=== PATIENT | male | born 1965 | race Caucasian/White ===

== ENCOUNTER 2020-09-25 06:22 | Emergency (ER) | payer OTHER ==
[~2020-09-25] VITALS: Ht 160 cm; Wt 87.1 kg
[2020-09-25 06:27] VITALS: BP 152/95
[2020-09-25] MEDS ORDERED: KETOROLAC 30 MG/ML VIAL IM ONE (07:20)
[2020-09-25] MEDS ORDERED: HYDROcodone/APAP 5/325 MG 1 TAB TAB PO ONE (07:20)
[2020-09-25] MEDS ORDERED: ONDANSETRON 4 MG ODT PO ONE (07:20)
[2020-09-25] MEDS ORDERED: ONDA-24 PO (09:39)
[2020-09-25] MEDS ORDERED: IBUP-2213 PO (09:39)
[2020-09-25] MEDS ORDERED: ACET-8386 PO (09:39)
[2020-09-25 09:46] VITALS: BP 123/53
== END 2020-09-25 09:46 | disposition home or self-care (01) ==
LOC: MED 06:22
DX: M25.532 Pain in left wrist (principal); M13.80 Other specified arthritis, unspecified site; X58.XXXA Exposure to other specified factors, initial encounter; Y93.89 Activity, other specified; Y92.89 Other specified places as the place of occurrence of the external cause; Y99.8 Other external cause status
CPT/HCPCS: 29125; 73110; 73200; 96372; 99284; J1885; Q0162

== ENCOUNTER 2021-02-04 08:38 | Emergency (ER) | payer OTHER ==
[~2021-02-04] VITALS: Ht 160 cm; Wt 86.6 kg
[~2021-02-04 08:38] MED LIST: ACET-8386 PO; IBUP-2213 PO; ONDA-24 PO
[2021-02-04 08:45] VITALS: BP_SYST 173; BP_SYST 199; BP_DIAS 95
--- NOTE | 2021-02-04 08:49 | NUR ---
PT SENT TO LOBBY
--- NOTE | 2021-02-04 13:51 | NUR ---
PATIENT LEFT WITHOUT BEING SEEN BY DR. HERZOG. NO FURTHER CARE PROVIDED FOR PATIENT.
== END 2021-02-04 13:51 | disposition left against medical advice (07) ==
LOC: MED 08:38
DX: Z53.21 Procedure and treatment not carried out due to patient leaving prior to being seen by health care provider (principal); M54.6 Pain in thoracic spine; Z79.1 Long term (current) use of non-steroidal anti-inflammatories (NSAID); Z79.899 Other long term (current) drug therapy; Z79.891 Long term (current) use of opiate analgesic; Z91.013 Allergy to seafood; W18.39XA Other fall on same level, initial encounter; Y92.89 Other specified places as the place of occurrence of the external cause; Y93.89 Activity, other specified; Y99.8 Other external cause status
CPT/HCPCS: 71250; 72128; 99281

== ENCOUNTER 2021-02-05 22:49 | Emergency (ER) | payer OTHER ==
[~2021-02-05] VITALS: Ht 162.6 cm; Wt 85.7 kg
--- NOTE | 2021-02-05 22:49 | NUR ---
[facility]
[2021-02-05 22:50] VITALS: BP 160/112
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
[2021-02-05] MEDS ORDERED: MORPHINE SULFATE 4 MG/ML SYR IVP ONE (23:20)
[2021-02-05] MEDS ORDERED: NACL 0.9% 1,000 ML IV ONE (23:20)
[2021-02-05] MEDS ORDERED: ONDANSETRON 4 MG/2 ML VIAL IVP ONE (23:20)
[2021-02-05 23:42] LABS: BASOPHILS # (AUTO) 0.1 K/uL (0.00-0.22); BASOPHILS % (AUTO) 2.1 % (0.0-2.0); EOSINOPHILS % (AUTO) 0.7 % (0.0-4.0); HEMOGLOBIN 15.2 g/dL (12.0-18.0); MEAN CORPUSCULAR HEMOGLOBIN 33 pg (27-31); MEAN CORPUSCULAR HGB CONC 35 g/dL (33-37); MEAN CORPUSCULAR VOLUME 94.1 fL (80-94); MONOCYTES # (AUTO) 0.4 K/uL (0.8-1.0); MONOCYTES % (AUTO) 10.2 % (1.7-9.3); PLATELET COUNT (AUTO) 250 K/uL (140-450); RED BLOOD CELL COUNT(AUTO) 4.67 MIL/uL (4.20-6.10); RED CELL DISTRIBUTION WIDTH 13.4 % (11.6-13.7); WHITE BLOOD COUNT (AUTO) 3.4 K/uL (4.8-10.8)
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
[2021-02-06 00:04] LABS: ALBUMIN 3.5 g/dL (3.4-5.0); ANION GAP 14.3 (8-16); CARBON DIOXIDE 24.5 mmol/L (21-32); CREATININE 0.8 mg/dL (0.6-1.3); POTASSIUM 3.8 mmol/L (3.5-5.1); TOTAL BILIRUBIN 0.2 mg/dL (0.0-1.0)
--- NOTE | 2021-02-06 00:48 | NUR ---
PT APPEARS TO BE RESTING W EYES CLOSED SUPINE HOB SLIGHTLY ELEVATED, BLANKET ON. BED LOCKED IN LOWEST POSITION W X2 SIDERAILS. VSS. BREATHING EVEN AND UNLABORED. NAD NOTED, WILL CONTINUE TO MONITOR.
--- NOTE | 2021-02-06 01:49 | NUR ---
PT TAKEN TO CT VIA [facility].
--- NOTE | 2021-02-06 02:29 | NUR ---
PT BROUGHT BACK FROM CT VIA [facility].
--- NOTE | 2021-02-06 02:36 | NUR ---
PT APPEARS TO BE RESTING W EYES CLOSED IN R LATERAL POSITION. BREATHING EVEN AND UNLABORED. VSS ON MONITOR. NAD NOTED, WILL CONTINUE TO MONITOR.
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
[2021-02-06] MEDS ORDERED: LID5T TP (04:10)
[2021-02-06] MEDS ORDERED: ACET-8386 PO (04:10)
[2021-02-06] MEDS ORDERED: ACET-2619 PO (04:10)
[2021-02-06] MEDS ORDERED: IBUP-2213 PO (04:10)
[2021-02-06] MEDS ORDERED: AMOX-1000 PO (04:11)
[2021-02-06] MEDS ORDERED: HYDROcodone/APAP 5/325 MG 1 TAB TAB PO ONE (04:15)
[2021-02-06 04:50] VITALS: BP 142/97
--- NOTE | 2021-02-06 04:50 | NUR ---
Patient discharged with v/s stable. Written and verbal after care instructions given and explained. Patient alert, oriented and verbalized understanding of instructions. Ambulatory with steady gait. All questions addressed prior to discharge. ID band removed. Patient advised to follow up with PMD. Rx of norco, ibuprofen, augmentin, lidocaine, tylenol given. Patient educated on indication of medication including possible reaction and side effects. Opportunity to ask questions provided and answered.
== END 2021-02-06 04:50 | disposition home or self-care (01) ==
LOC: MED 22:49
DX: S02.2XXA Fracture of nasal bones, initial encounter for closed fracture (principal); S22.059A Unspecified fracture of T5-T6 vertebra, initial encounter for closed fracture; S43.402A Unspecified sprain of left shoulder joint, initial encounter; W11.XXXA Fall on and from ladder, initial encounter; Y93.89 Activity, other specified; Y92.89 Other specified places as the place of occurrence of the external cause; Y99.8 Other external cause status
CPT/HCPCS: 36415; 70450; 71250; 72125; 72128; 72131; 73030; 74176; 80053; 85025; 85610; 96361; 96374; 96375; 99285; J2270; J2405; J7030; Q0092

== ENCOUNTER 2021-06-01 11:27 | Emergency (ER) | payer OTHER ==
[~2021-06-01] VITALS: Ht 167.6 cm; Wt 72.6 kg
[~2021-06-01 11:27] MED LIST changes: +ACET-2619 PO; +AMOX-1000 PO; +LID5T TP; +ONDA-188 PO; -ONDA-24 PO
[2021-06-01 11:31] VITALS: BP 149/127
[2021-06-01] MEDS ORDERED: KETOROLAC 15 MG/ML VIAL IVP ONE (11:35)
[2021-06-01] MEDS ORDERED: NACL 0.9% 1,000 ML IV ONE (11:35)
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
--- NOTE | 2021-06-01 12:14 | NUR ---
BLOOD WORK COLLECTED AND HANDED TO PAMELA TIRADO
--- NOTE | 2021-06-01 12:14 | NUR ---
[place] [facility] AT BEDSIDE
[2021-06-01 12:50] LABS: ALBUMIN 4.1 g/dL (3.4-5.0); ANION GAP 19.9 (8-16); CARBON DIOXIDE 21.2 mmol/L (21-32); CREATININE 0.7 mg/dL (0.6-1.3); POTASSIUM 4.1 mmol/L (3.5-5.1); TOTAL BILIRUBIN 0.5 mg/dL (0.0-1.0)
[2021-06-01 13:12] LABS: BASOPHILS # (AUTO) 0.1 K/uL (0.00-0.22); EOSINOPHILS % (AUTO) 0.1 % (0.0-4.0); HEMATOCRIT 46.4 % (36-52); HEMOGLOBIN 16.3 g/dL (12.0-18.0); LYMPHOCYTES # (AUTO) 1.6 K/uL (2.0-11.5); LYMPHOCYTES % (AUTO) 46.1 % (20.5-51.1); MEAN CORPUSCULAR HEMOGLOBIN 33 pg (27-31); MEAN CORPUSCULAR HGB CONC 35 g/dL (33-37); MONOCYTES # (AUTO) 0.3 K/uL (0.8-1.0); MONOCYTES % (AUTO) 8.2 % (1.7-9.3); NEUTROPHILS # (AUTO) 1.5 K/uL (1.8-7.7); NEUTROPHILS % (AUTO) 43.6 % (42.2-75.2); PLATELET COUNT (AUTO) 251 K/uL (140-450); RED BLOOD CELL COUNT(AUTO) 4.94 MIL/uL (4.20-6.10); WHITE BLOOD COUNT (AUTO) 3.5 K/uL (4.8-10.8)
[2021-06-01] MEDS ORDERED: IBUP-2213 PO (13:55)
[2021-06-01] MEDS ORDERED: HYDR-5191 PO (13:55)
--- NOTE | 2021-06-01 14:07 | NUR ---
PATIENT'S STATES UNABLE TO PROVIDE TRANSPORTATION GOING HOME.
--- NOTE | 2021-06-01 14:26 | NUR ---
Patient discharged with v/s stable. Written and verbal after care instructions given and explained. Patient alert, oriented and verbalized understanding of instructions. Ambulatory with steady gait. All questions addressed prior to discharge. ID band removed. Patient advised to follow up with PMD. Rx of tylenol and norco given. Patient educated on indication of medication including possible reaction and side effects. Opportunity to ask questions provided and answered.
[2021-06-01 14:27] VITALS: BP 149/127
[2021-06-01 15:43] LABS: APPEARANCE,URINE CLEAR (CLEAR); BILIRUBIN,URINE NEGATIVE (NEGATIVE); BLOOD, URINE NEGATIVE (NEGATIVE); COLOR,URINE YELLOW (YELLOW); LEUKOCYTE ESTERASE ,URINE NEGATIVE (NEGATIVE); NITRITE, URINE NEGATIVE (NEGATIVE); PH,URINE 5.5 (5.0-9.0); UGLUCOSE NEGATIVE (NEGATIVE)
[2021-06-01 15:59] LABS: BARBITURATE, URINE NEGATIVE ng/ml (NEG <=200); BENZODIAZEPINE, URINE NEGATIVE ng/mL (NEG <=200); CANNABINOID, URINE POSITIVE ng/mL (NEG <=50); COCAINE, URINE NEGATIVE ng/mL (NEG <=300)
[2021-06-01 16:00] LABS: OPIATE, URINE NEGATIVE ng/mL (NEG <=2000); PHENCYCLIDINE SCREEN,URINE NEGATIVE ng/mL (NEG <=25)
== END 2021-06-01 14:26 | disposition home or self-care (01) ==
LOC: MED 11:27
DX: M54.9 Dorsalgia, unspecified (principal); I10 Essential (primary) hypertension; Z79.899 Other long term (current) drug therapy; Y04.2XXA Assault by strike against or bumped into by another person, initial encounter; Y93.89 Activity, other specified; Y92.89 Other specified places as the place of occurrence of the external cause; Y99.8 Other external cause status
CPT/HCPCS: 36415; 71045; 74176; 80053; 80305; 81003; 85025; 96361; 96374; 99285; G0482; J1885; J7030; Q0092

== ENCOUNTER 2022-09-26 20:48 | Inpatient (IN) | payer MEDICAID, OTHER ==
[~2022-09-26] VITALS: Ht 165.1 cm; Wt 81.6 kg
--- NOTE | 2022-09-26 20:48 | NUR ---
BIBA TO BED #9
[2022-09-26 20:52] VITALS: BP 154/95
--- NOTE | 2022-09-26 20:53 | NUR ---
Patient being evaluated by physician at bedside.
[2022-09-26] MEDS ORDERED: diazePAM 5 MG TAB PO ONE (20:55)
[2022-09-26] MEDS ORDERED: NACL 0.9% 1,000 ML IV ONE ×2 (20:55→21:45)
[2022-09-26 21:14] LABS: BASOPHILS # (AUTO) 0.1 K/uL (0.00-0.22); BASOPHILS % (AUTO) 1.3 % (0.0-2.0); EOSINOPHILS % (AUTO) 0.1 % (0.0-4.0); HEMATOCRIT 48.3 % (36-52); HEMOGLOBIN 16.5 g/dL (12.0-18.0); LYMPHOCYTES # (AUTO) 1.9 K/uL (2.0-11.5); LYMPHOCYTES % (AUTO) 41.2 % (20.5-51.1); MEAN CORPUSCULAR HEMOGLOBIN 32 pg (27-31); MEAN CORPUSCULAR HGB CONC 34 g/dL (33-37); MEAN CORPUSCULAR VOLUME 93.9 fL (80-94); MONOCYTES # (AUTO) 0.4 K/uL (0.8-1.0); MONOCYTES % (AUTO) 8.5 % (1.7-9.3); NEUTROPHILS # (AUTO) 2.2 K/uL (1.8-7.7); NEUTROPHILS % (AUTO) 48.9 % (42.2-75.2); PLATELET COUNT (AUTO) 272 K/uL (140-450); RED BLOOD CELL COUNT(AUTO) 5.14 MIL/uL (4.20-6.10); RED CELL DISTRIBUTION WIDTH 14.6 % (11.6-13.7); WHITE BLOOD COUNT (AUTO) 4.5 K/uL (4.8-10.8)
[2022-09-26 21:30] LABS: CARBON DIOXIDE 23.9 mmol/L (21-32); CREATININE 0.8 mg/dL (0.6-1.3); POTASSIUM 4.9 mmol/L (3.5-5.1)
--- NOTE | 2022-09-26 21:39 | NUR ---
Dr. Avila examining patient.
--- NOTE | 2022-09-26 23:55 | NUR ---
Spoke with , Adriane Yi, via phone in regards to patient discharge who stated she would be unable to pick patient up at this time
--- NOTE | 2022-09-27 | NUR ---
Attempted to ambulate patient, unable to do so at this time, noted with unsteady gait and c/o dizziness when attempting to ambulate.
[2022-09-27] MEDS ORDERED: LORazepam 2 MG/ML VIAL IVP ONE (00:25)
[2022-09-27] MEDS ORDERED: ONDANSETRON 4 MG/2 ML VIAL IVP ONE (00:25)
--- NOTE | 2022-09-27 01:29 | NUR ---
Report given to Lindsey MONGE for transfer of care.
[2022-09-27 01:40] VITALS: BP 122/78
--- NOTE | 2022-09-27 01:40 | NUR ---
56YR OLD MALE ADDMITTED TO [id number] IS SNORING BUT IS AROUSABLE ORIENT TO ROOM ON ROOMAIR BED IN LOW POSITION SKIN CHECKED REPOSITIONED AND MADE COMFORTABLE IN BED
[2022-09-27] MEDS: NACL 0.9% 1,000 ML IV SCH ×2 (01:55→08:21)
[2022-09-27 04:00] VITALS: BP 131/83
[2022-09-27] MEDS: LORazepam 2 MG/ML VIAL IVP PRN ×7 (05:59→21:11)
[2022-09-27 08:00] VITALS: BP 157/98
--- NOTE | 2022-09-27 08:42 | NUR ---
PATIENT HAS BEEN SCREENED AND CATEGORIZED LOW NUTRITION RISK. PATIENT WILL BE SEEN WITHIN 7 DAYS OF ADMISSION. 10/04/[address]
[2022-09-27] MEDS ORDERED: guaiFENesin DM 200/20 MG-10 ML 10 ML UDC PO PRN (08:50)
[2022-09-27] MEDS ORDERED: POTASSIUM CHLORIDE 10 MEQ TABER PO PRN (08:50)
[2022-09-27] MEDS ORDERED: DOCUSATE SODIUM 100 MG GELCAP PO PRN (08:50)
[2022-09-27] MEDS: PANTOPRAZOLE 40 MG TABEC PO SCH (09:54)
[2022-09-27 09:58] LABS: PROTHROMBIN TIME 10.8 secs (10.8-13.4)
[2022-09-27 10:08] LABS: AMYLASE 88 U/L (25-115); CHOL/HDL RATIO 1.9 (1-4.5); FREE T4 (FREE THYROXINE) 0.58 ng/dL (0.76-1.46); HDL CHOLESTEROL 100 mg/dL (40-60); LDL (CALC) 75 mg/dL (60-100); LIPASE 68 U/L (73-393); MAGNESIUM 1.5 mg/dL (1.8-2.4); PHOSPHORUS 3.2 mg/dL (2.5-4.9); THYROID STIMULATING HORMONE 2.31 uIU/mL (0.34-3.74); TRIGLYCERIDES 76 mg/dL (30-150)
[2022-09-27] MEDS: LORazepam 1 MG TAB PO SCH ×2 (13:02→20:03)
[2022-09-27] MEDS: ONDANSETRON 4 MG/2 ML VIAL IM/IVP PRN (13:55)
[2022-09-27] MEDS: HYDROcodone/APAP 7.5/325 MG 1 TAB PO PRN ×2 (13:55→23:47)
[2022-09-27] MEDS ORDERED: THIAMINE 200 MG/2 ML VIAL IM SCH (14:00)
[2022-09-27] MEDS ORDERED: MAG SULF 2000 MG/WATER PREMIX 50 ML IV SCH (14:00)
[2022-09-27] MEDS ORDERED: MULTIVITAMIN-12 10 ML, FOLIC ACID 1 MG in DEXT 5% / LACT RING 1,000 ML IV SCH (14:30)
[2022-09-27] MEDS: THIAMINE 100 MG TAB PO SCH (15:12)
[2022-09-27 16:00] VITALS: BP 146/98
[2022-09-27 17:25] LABS: APPEARANCE,URINE CLEAR (CLEAR); BILIRUBIN,URINE NEGATIVE (NEGATIVE); BLOOD, URINE NEGATIVE (NEGATIVE); COLOR,URINE YELLOW (YELLOW); LEUKOCYTE ESTERASE ,URINE NEGATIVE (NEGATIVE); NITRITE, URINE NEGATIVE (NEGATIVE); UGLUCOSE NEGATIVE (NEGATIVE)
[2022-09-27 17:36] LABS: BARBITURATE, URINE NEGATIVE ng/ml (NEG <=200); BENZODIAZEPINE, URINE POSITIVE ng/mL (NEG <=200); CANNABINOID, URINE POSITIVE ng/mL (NEG <=50); COCAINE, URINE NEGATIVE ng/mL (NEG <=300); OPIATE, URINE POSITIVE ng/mL (NEG <=2000); PHENCYCLIDINE SCREEN,URINE NEGATIVE ng/mL (NEG <=25)
--- NOTE | 2022-09-27 19:39 | NUR ---
PT HAD CRITICAL LAB VALUE REPORT, LACTIC ACID: 2.2. INFORMED ATTENDING MD, ATTENDING MD STATES TO CONTINUE MONITORING. PT WAS REQUESTED PRN ATIVAN THROUGHOUT DAY. ATIVAN PROVIDED ORDERED. 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
--- NOTE | 2022-09-27 19:41 | NUR ---
ENDORSED TO NIGHTSHIFT NURSE FOR CONTINUITY OF CARE. PT RESTING IN BED, AWAKE, STABLE. CALL LIGHT WITHIN REACH.
--- NOTE | 2022-09-27 19:42 | NUR ---
RECEIVED REPORT FROM DAY SHIFT RN FOR CONTINUITY OF CARE. PT IS RESTING IN BED. AAOX4. PT HAS IV ON LEFT FOREARM 20 GAUGE. BANANA BAG RUNNING 100 CC/HR. PT ASKING FOR ATIVAN. MEDICATION STILL NOT DUE BUT WILL GIVE ONCE IT IS TIME. POC DISCUSSED. WILL CONTINUE TO MONITOR THE PT.
[2022-09-27 20:00] VITALS: BP 151/87
[2022-09-27] MEDS: ZOLPIDEM 5 MG TAB PO PRN (20:07)
--- NOTE | 2022-09-27 23:50 | NUR ---
PT COMPLAINED OF GENERALIZED PAIN. NORCO WAS GIVEN PER MD ORDER. NO OTHER COMPLAINS.
[2022-09-28] MEDS: LORazepam 2 MG/ML VIAL IVP PRN ×11 (01:18→22:50)
[2022-09-28] MEDS: HYDROcodone/APAP 7.5/325 MG 1 TAB PO PRN ×3 (03:40→23:39)
[2022-09-28 04:00] VITALS: BP 137/81
[2022-09-28] MEDS: LORazepam 1 MG TAB PO SCH ×3 (04:16→20:25)
--- NOTE | 2022-09-28 04:59 | NUR ---
PT COMPLAINED OF 5/10 PAIN ON LEFT FOOT. NORCO WAS GIVEN. NO OTHER COMPLAINS. Addendum: 09/28/22 at 0603 by Thong Thao RN WRONG PT. PT COMPLAINED OF GENERALIZED PAIN 10/10. PT WANTED NORCO AND WAS GIVEN. NO OTHER COMPLAINS.
[2022-09-28 05:36] LABS: BASOPHILS # (AUTO) 0.1 K/uL (0.00-0.22); BASOPHILS % (AUTO) 1.1 % (0.0-2.0); EOSINOPHILS # (AUTO) 0.1 K/uL (0-0.4); EOSINOPHILS % (AUTO) 1.6 % (0.0-4.0); HEMATOCRIT 41.9 % (36-52); HEMOGLOBIN 14.5 g/dL (12.0-18.0); LYMPHOCYTES # (AUTO) 1.2 K/uL (2.0-11.5); LYMPHOCYTES % (AUTO) 23.3 % (20.5-51.1); MEAN CORPUSCULAR HEMOGLOBIN 32 pg (27-31); MEAN CORPUSCULAR HGB CONC 35 g/dL (33-37); MEAN CORPUSCULAR VOLUME 93.4 fL (80-94); MONOCYTES # (AUTO) 0.9 K/uL (0.8-1.0); MONOCYTES % (AUTO) 17.2 % (1.7-9.3); NEUTROPHILS % (AUTO) 56.8 % (42.2-75.2); PLATELET COUNT (AUTO) 210 K/uL (140-450); RED BLOOD CELL COUNT(AUTO) 4.49 MIL/uL (4.20-6.10); RED CELL DISTRIBUTION WIDTH 14.4 % (11.6-13.7); WHITE BLOOD COUNT (AUTO) 5.3 K/uL (4.8-10.8)
[2022-09-28 06:08] LABS: CARBON DIOXIDE 25.8 mmol/L (21-32); CREATININE 0.7 mg/dL (0.6-1.3); POTASSIUM 3.8 mmol/L (3.5-5.1)
--- NOTE | 2022-09-28 07:11 | NUR ---
ENDORSED PT TO DAY SHIFT RN FOR CONTINUITY OF CARE. PT IS STABLE.
--- NOTE | 2022-09-28 07:48 | NUR ---
Patient says he is feeling scared and hallucinating. Left arm and body are shaking upon examination. Patient says he wants to call his family but he does not have his phone and does not know where it is.
[2022-09-28] MEDS: NACL 0.9% 1,000 ML IV SCH ×4 (07:51→22:15)
[2022-09-28 08:00] VITALS: BP 138/71
[2022-09-28] MEDS: THIAMINE 100 MG TAB PO SCH (08:08)
[2022-09-28] MEDS: PANTOPRAZOLE 40 MG TABEC PO SCH (08:09)
[2022-09-28] MEDS: ACETAMINOPHEN 325 MG TAB PO PRN ×2 (08:09→13:08)
[2022-09-28] MEDS ORDERED: MULTIVITAMIN 1 TAB PO SCH (09:00)
[2022-09-28] MEDS ORDERED: FOLIC ACID 1 MG TAB PO SCH (09:00)
--- NOTE | 2022-09-28 12:36 | NUR ---
Patient requesting warm blanket given at this time.
--- NOTE | 2022-09-28 12:37 | NUR ---
Patient request for change of clothes when he leaves tomorrow he says.
[2022-09-28] MEDS: chlordiazePOXIDE 25 MG CAP PO SCH ×2 (13:08→17:27)
[2022-09-28] MEDS: ONDANSETRON 4 MG/2 ML VIAL IM/IVP PRN (13:09)
--- NOTE | 2022-09-28 13:17 | NUR ---
Patient complaint of pain, anxiety, and says he needs to get back in to work on Saturday. Wants to have medication for nausea as well and says he needs something to eat.
--- NOTE | 2022-09-28 15:13 | NUR ---
Patient is still feeling bad and wants something for shaking and to help him sleep. His goal is to taper off the medication or at least further time intervals between doses.
[2022-09-28 16:00] VITALS: BP 148/98
[2022-09-28 17:13] LABS: T4 (THYROXINE) 4.2 ug/dL (4.5 - 12.0)
--- NOTE | 2022-09-28 18:18 | NUR ---
PATIENT IS AWARE THAT DOCTOR MOHINI IS NOT ABLE TO DISCHARGE AT THIS TIME, HOWEVER, PATIENT EDUCATION HE MAY GO AGAINST MEDICAL ADVICE. DOCTOR MOHINI MADE AWARE AND CONCURS WITH EDUCATION.
--- NOTE | 2022-09-28 19:14 | NUR ---
Handoff with night team registered nurseThong.
--- NOTE | 2022-09-28 19:30 | NUR ---
RECEIVED REPORT FROM DAY SHIFT RN FOR CONTINUITY OF CARE. PT IS RESTING IN BED. AAOX4. RESTING IN BED. PT HAS IV ON LEFT FOREARM 20 GAUGE. RUNNING NS 135 CC/HR. POC DISCUSSED. WILL CONTINUE TO MONITOR THE PT.
[2022-09-28 20:00] VITALS: BP 153/95
[2022-09-28] MEDS: ZOLPIDEM 5 MG TAB PO PRN (20:25)
--- NOTE | 2022-09-28 22:50 | NUR ---
PT STATES HE IS FEELING BAD. PT WANTS SOME MEDICINE. ATIVAN WAS GIVEN.
--- NOTE | 2022-09-28 23:49 | NUR ---
PT CALLED ON THE CALL LIGHT ASKING IF HE CAN SMOKE. PT WAS EDUCATED AND HE CANNOT SMOKE HERE IN THE HOSPITAL.
[2022-09-29] MEDS: LORazepam 2 MG/ML VIAL IVP PRN ×3 (00:44→03:12)
--- NOTE | 2022-09-29 04:03 | NUR ---
PT CALLED ASKING THAT HE IS LEAVING AMA. TRIED EDUCATING PT ABOUT LEAVING AMA AND SHOULD WAIT TO SEE THE DOCTOR. PT SAYS HE HAS TO LEAVE AT 4AM. HE HAS SOME BUSINESS HE HAS TO HANDLE. PT HAS NO RIDE. HE SAYS HIS DAUGHTER LIVES NEARBY AND HE WILL WALK IT. PT DENIED ANY MEASURES OF STAYING. MESSAGE [employer] COORDINATOR DOCTOR OMAR ABOUT THE PT LEAVING AMA.
== END 2022-09-29 04:03 | disposition left against medical advice (07) | DRG 52 ==
LOC: MED 20:48 → MMU 09-27 01:06 → MTU 09-27 01:23
PROVIDERS: ADMIT Family Medicine; ATTEND Family Medicine
DX: G92.9 Unspecified toxic encephalopathy (principal); E87.20 Acidosis, unspecified; E83.42 Hypomagnesemia; F10.129 Alcohol abuse with intoxication, unspecified; I10 Essential (primary) hypertension; Y90.8 Blood alcohol level of 240 mg/100 ml or more; Z91.013 Allergy to seafood
CPT/HCPCS: 36415; 71045; 80048; 80305; 81003; 82150; 83036; 83605; 83690; 83735; 83880; 84100; 84436; 84439; 84443; 84479; 84484; 85025; 85610; 85730; 87081; 96361; 96374; 96375; 99285; A9153; G0482; J2060; J2405; J3411; J3475; J3490

== ENCOUNTER 2022-10-07 18:50 | Emergency (ER) | payer MEDICAID ==
[~2022-10-07] VITALS: Ht 160 cm; Wt 86.2 kg
[2022-10-07 18:53] VITALS: BP 138/92; PULSE 87; RESP 16; TEMP 98; O2SAT 85
--- NOTE | 2022-10-07 19:20 | NUR ---
PT TO CHAIR B
--- NOTE | 2022-10-07 19:25 | NUR ---
EKG performed Physician given copy of EKG for review.
--- NOTE | 2022-10-07 19:28 | NUR ---
LABS BEING DRAWN BY PHLEB
--- NOTE | 2022-10-07 19:38 | NUR ---
Patient being evaluated by physician
[2022-10-07 19:40] LABS: BASOPHILS % (AUTO) 0.9 % (0.0-2.0); EOSINOPHILS # (AUTO) 0.2 K/uL (0-0.4); EOSINOPHILS % (AUTO) 2.8 % (0.0-4.0); HEMATOCRIT 39.5 % (36-52); HEMOGLOBIN 13.4 g/dL (12.0-18.0); LYMPHOCYTES # (AUTO) 1.2 K/uL (2.0-11.5); LYMPHOCYTES % (AUTO) 20.9 % (20.5-51.1); MEAN CORPUSCULAR HEMOGLOBIN 32 pg (27-31); MEAN CORPUSCULAR HGB CONC 34 g/dL (33-37); MEAN CORPUSCULAR VOLUME 94.8 fL (80-94); MONOCYTES % (AUTO) 16.4 % (1.7-9.3); NEUTROPHILS # (AUTO) 3.4 K/uL (1.8-7.7); PLATELET COUNT (AUTO) 282 K/uL (140-450); RED BLOOD CELL COUNT(AUTO) 4.17 MIL/uL (4.20-6.10); RED CELL DISTRIBUTION WIDTH 14.5 % (11.6-13.7); WHITE BLOOD COUNT (AUTO) 5.8 K/uL (4.8-10.8)
[2022-10-07] MEDS ORDERED: LORazepam 1 MG TAB PO ONE (19:45)
[2022-10-07 20:05] LABS: ALBUMIN 3.7 g/dL (3.4-5.0); ANION GAP 12.6 (8-16); CARBON DIOXIDE 26.6 mmol/L (21-32); CREATININE 0.9 mg/dL (0.6-1.3); POTASSIUM 4.2 mmol/L (3.5-5.1); TOTAL BILIRUBIN 0.2 mg/dL (0.0-1.0)
[2022-10-07] MEDS ORDERED: ATA25 PO (20:47)
[2022-10-07] MEDS ORDERED: ONDA-188 SL (20:47)
[2022-10-07 21:03] VITALS: BP 138/92; PULSE 87; RESP 16; TEMP 98; O2SAT 85
--- NOTE | 2022-10-07 21:03 | NUR ---
Patient discharged with v/s stable. Written and verbal after care instructions given and explained. Patient alert, oriented and verbalized understanding of instructions. Ambulatory with steady gait. All questions addressed prior to discharge. ID band removed. Patient advised to follow up with PMD. Rx of ATARAX AND ZOFRAN given. Patient educated on indication of medication including possible reaction and side effects. Opportunity to ask questions provided and answered.
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
[2022-10-07 21:29] LABS: BARBITURATE, URINE NEGATIVE ng/ml (NEG <=200); BENZODIAZEPINE, URINE POSITIVE ng/mL (NEG <=200); CANNABINOID, URINE POSITIVE ng/mL (NEG <=50); COCAINE, URINE NEGATIVE ng/mL (NEG <=300); OPIATE, URINE NEGATIVE ng/mL (NEG <=2000); PHENCYCLIDINE SCREEN,URINE NEGATIVE ng/mL (NEG <=25)
== END 2022-10-07 21:03 | disposition home or self-care (01) ==
LOC: MED 18:50
DX: F10.20 Alcohol dependence, uncomplicated (principal); F41.9 Anxiety disorder, unspecified; R11.2 Nausea with vomiting, unspecified; I10 Essential (primary) hypertension; Z79.899 Other long term (current) drug therapy
CPT/HCPCS: 36415; 80053; 80305; 83690; 85025; 93005; 99284

== ENCOUNTER 2023-01-01 15:49 | Emergency (ER) | payer MEDICAID, OTHER ==
[~2023-01-01] VITALS: Ht 172.7 cm; Wt 85.7 kg
[~2023-01-01 15:49] MED LIST changes: -ACET-2619 PO; -ACET-8386 PO; -AMOX-1000 PO; +ATA25 PO; -IBUP-2213 PO; -LID5T TP; -ONDA-188 PO; +ONDA-188 SL
[2023-01-01 15:55] VITALS: BP 126/57; PULSE 133; RESP 17; TEMP 97.6; O2SAT 94
[2023-01-01] MEDS ORDERED: FAMOTIDINE 20 MG TAB PO ONE (16:55)
[2023-01-01] MEDS ORDERED: diphenhydrAMINE 50 MG/ML VIAL IVP ONE (16:55)
[2023-01-01] MEDS ORDERED: DEXAMETHASONE 10 MG/ML VIAL IVP ONE (16:55)
[2023-01-01] MEDS ORDERED: diphenhydrAMINE 50 MG CAP PO ONE (17:15)
[2023-01-01] MEDS ORDERED: DEXAMETHASONE 10 MG/ML VIAL IM ONE (17:15)
[2023-01-01] MEDS ORDERED: PRED20TA5 PO (19:22)
[2023-01-01] MEDS ORDERED: DIPH25TA53 PO (19:22)
[2023-01-01] MEDS ORDERED: FAMO-90 PO (19:22)
[2023-01-01] MEDS ORDERED: IBUP-2213 PO (19:22)
== END 2023-01-01 19:53 | disposition home or self-care (01) ==
LOC: MED 15:49
DX: R21 Rash and other nonspecific skin eruption (principal); I10 Essential (primary) hypertension; Z79.899 Other long term (current) drug therapy
CPT/HCPCS: 96372; 99283; J1100; Q0163

== ENCOUNTER 2023-02-08 08:08 | Observation (INO) | payer OTHER ==
[~2023-02-08] VITALS: Ht 167.6 cm; Wt 90.3 kg
[~2023-02-08 08:08] MED LIST changes: +DIPH25TA53 PO; +FAMO-90 PO; +IBUP-2213 PO; +PRED20TA5 PO
[2023-02-08] MEDS ORDERED: FOLIC ACID 5 MG, MULTIVITAMIN-12 10 ML in NACL 0.9% 1,000 ML IV ONE (08:15)
[2023-02-08] MEDS ORDERED: MAG SULF 2000 MG/WATER PREMIX 50 ML IV ONE ×2 (08:15→08:45)
[2023-02-08] MEDS ORDERED: THIAMINE 200 MG/2 ML VIAL IM ONE ×2 (08:15→08:45)
[2023-02-08] MEDS ORDERED: FOLIC ACID 5 MG/ML SYR ONE (08:23)
[2023-02-08 08:30] VITALS: BP 165/106; PULSE 108; RESP 20; TEMP 98; O2SAT 98
[2023-02-08 08:39] LABS: BASOPHILS # (AUTO) 0.1 K/uL (0.00-0.22); BASOPHILS % (AUTO) 2.2 % (0.0-2.0); EOSINOPHILS % (AUTO) 0.1 % (0.0-4.0); HEMATOCRIT 46.1 % (36-52); HEMOGLOBIN 15.8 g/dL (12.0-18.0); LYMPHOCYTES # (AUTO) 1.9 K/uL (2.0-11.5); LYMPHOCYTES % (AUTO) 39.3 % (20.5-51.1); MEAN CORPUSCULAR HEMOGLOBIN 31 pg (27-31); MEAN CORPUSCULAR HGB CONC 34 g/dL (33-37); MEAN CORPUSCULAR VOLUME 90.9 fL (80-94); MONOCYTES # (AUTO) 0.5 K/uL (0.8-1.0); MONOCYTES % (AUTO) 10.8 % (1.7-9.3); NEUTROPHILS # (AUTO) 2.3 K/uL (1.8-7.7); NEUTROPHILS % (AUTO) 47.6 % (42.2-75.2); PLATELET COUNT (AUTO) 270 K/uL (140-450); RED BLOOD CELL COUNT(AUTO) 5.07 MIL/uL (4.20-6.10); RED CELL DISTRIBUTION WIDTH 14.1 % (11.6-13.7); WHITE BLOOD COUNT (AUTO) 4.8 K/uL (4.8-10.8)
[2023-02-08] MEDS ORDERED: FOLIC ACID 1 MG TAB PO ONE (08:45)
[2023-02-08] MEDS ORDERED: NACL 0.9% 1,000 ML IV ONE ×3 (08:45→15:25)
[2023-02-08] MEDS ORDERED: LORazepam 2 MG/ML VIAL IVP ONE ×2 (08:45→13:10)
[2023-02-08 09:04] VITALS: O2SAT 96
[2023-02-08 09:08] LABS: ALANINE AMINOTRANSFERASE 67 U/L (12-78); ALBUMIN 4.2 g/dL (3.4-5.0); ALCOHOL, BLOOD 245 mg/dL (<10); ALKALINE PHOSPHATASE 80 U/L (50-136); ANION GAP 18.5 (8-16); ASPARTATE AMINOTRANSFERASE 103 U/L (15-37); CALCIUM 8.1 mg/dL (8.5-10.1); CARBON DIOXIDE 23.5 mmol/L (21-32); CHLORIDE 99 mmol/L (98-107); CREATININE 0.9 mg/dL (0.6-1.3); GFR ARICAN-AMERICAN 112 mL/min (>90); GFR NON ARICAN-AMERICAN 93 mL/min (>90); GLUCOSE 122 mg/dL (74-106); SODIUM SERUM 137 mmol/L (136-145); TOTAL BILIRUBIN 0.8 mg/dL (0.0-1.0); TOTAL PROTEIN, SERUM 7.7 g/dL (6.4-8.2); UREA NITROGEN, BLOOD 11 mg/dL (7-18)
[2023-02-08 09:10] LABS: ACETAMINOPHEN < 0.5 ug/ml (10-30); SALICYLATE < 2.8 mg/dL (2.8-20.0)
[2023-02-08] MEDS ORDERED: ONDANSETRON 4 MG/2 ML VIAL IVP ONE ×2 (09:20→16:30)
[2023-02-08] MEDS ORDERED: ONDANSETRON 4 MG/2 ML VIAL ONE (09:21)
[2023-02-08] MEDS ORDERED: METOCLOPRAMIDE 10 MG/2 ML INJ VIAL IVP ONE (09:35)
[2023-02-08] MEDS ORDERED: diphenhydrAMINE 50 MG/ML VIAL IVP ONE (09:35)
[2023-02-08] MEDS ORDERED: LORazepam 2 MG/ML VIAL ONE (09:48)
[2023-02-08 10:12] LABS: AMPHETAMINE, URINE NEGATIVE ng/ml (NEG <=1000); BARBITURATE, URINE NEGATIVE ng/ml (NEG <=200); BENZODIAZEPINE, URINE NEGATIVE ng/mL (NEG <=200)
[2023-02-08 10:13] LABS: CANNABINOID, URINE POSITIVE ng/mL (NEG <=50); COCAINE, URINE NEGATIVE ng/mL (NEG <=300); OPIATE, URINE NEGATIVE ng/mL (NEG <=2000); PHENCYCLIDINE SCREEN,URINE NEGATIVE ng/mL (NEG <=25)
[2023-02-08 15:25] LABS: LACTIC ACID 2.4 mmol/L (0.4-2.0)
[2023-02-08] MEDS ORDERED: HALOPERIDOL IM 5 MG/ML VIAL IM ONE (16:35)
[2023-02-08] MEDS ORDERED: ACETAMINOPHEN 325 MG TAB PO PRN (17:25)
[2023-02-08] MEDS ORDERED: ONDANSETRON 4 MG/2 ML VIAL IVP PRN (17:25)
[2023-02-08] MEDS: NACL 0.9% 1,000 ML IV SCH (17:48)
[2023-02-08] MEDS: LORazepam 2 MG/ML VIAL IVP PRN ×2 (17:57→22:01)
[2023-02-08 19:21] LABS: CREATINE KINASE, TOTAL 2327 U/L (39-308)
[2023-02-08 19:58] VITALS: O2SAT 94
[2023-02-08 21:05] VITALS: PULSE 103; RESP 18; RESP 20; O2SAT 92
[2023-02-08 21:18] VITALS: BP 137/81; PULSE 100; PULSE 103; RESP 18; TEMP 97.3; O2SAT 92
[2023-02-08] MEDS: MORPHINE SULFATE 2 MG/ML SYR IVP PRN (23:26)
[2023-02-08 23:55] VITALS: PULSE 98
[2023-02-09] VITALS: BP 136/90; PULSE 96; RESP 18; TEMP 97.6; O2SAT 96
[2023-02-09] MEDS: LORazepam 2 MG/ML VIAL IVP PRN (02:51)
[2023-02-09] MEDS: NACL 0.9% 1,000 ML IV SCH ×2 (02:52→09:27)
[2023-02-09 04:00] VITALS: BP 139/94; PULSE 93; RESP 18; TEMP 98.2; O2SAT 94
[2023-02-09 05:00] VITALS: PULSE 104
[2023-02-09] MEDS: MORPHINE SULFATE 2 MG/ML SYR IVP PRN (05:57)
[2023-02-09 06:44] LABS: BASOPHILS # (AUTO) 0.1 K/uL (0.00-0.22); EOSINOPHILS % (AUTO) 0.5 % (0.0-4.0); HEMATOCRIT 41.4 % (36-52); HEMOGLOBIN 14.3 g/dL (12.0-18.0); LYMPHOCYTES # (AUTO) 1.3 K/uL (2.0-11.5); LYMPHOCYTES % (AUTO) 19.4 % (20.5-51.1); MEAN CORPUSCULAR HEMOGLOBIN 32 pg (27-31); MEAN CORPUSCULAR HGB CONC 35 g/dL (33-37); MONOCYTES # (AUTO) 0.7 K/uL (0.8-1.0); MONOCYTES % (AUTO) 9.7 % (1.7-9.3); NEUTROPHILS # (AUTO) 4.7 K/uL (1.8-7.7); NEUTROPHILS % (AUTO) 69.4 % (42.2-75.2); PLATELET COUNT (AUTO) 215 K/uL (140-450); RED CELL DISTRIBUTION WIDTH 13.9 % (11.6-13.7); WHITE BLOOD COUNT (AUTO) 6.8 K/uL (4.8-10.8)
[2023-02-09 06:56] LABS: ALBUMIN 3.6 g/dL (3.4-5.0); ANION GAP 15.7 (8-16); CALCIUM 7.1 mg/dL (8.5-10.1); CARBON DIOXIDE 23.7 mmol/L (21-32); CREATININE 0.8 mg/dL (0.6-1.3); MAGNESIUM 1.8 mg/dL (1.8-2.4); POTASSIUM 3.4 mmol/L (3.5-5.1); TOTAL BILIRUBIN 1.4 mg/dL (0.0-1.0)
== END 2023-02-09 11:25 | disposition left against medical advice (07) ==
LOC: MED 08:08 → MTU 17:33
PROVIDERS: ADMIT Hospitalist; ATTEND Hospitalist
DX: F10.239 Alcohol dependence with withdrawal, unspecified (principal); F10.229 Alcohol dependence with intoxication, unspecified; E87.6 Hypokalemia; E83.51 Hypocalcemia; E80.6 Other disorders of bilirubin metabolism; E87.20 Acidosis, unspecified; M06.9 Rheumatoid arthritis, unspecified; M62.82 Rhabdomyolysis; E86.0 Dehydration; F12.10 Cannabis abuse, uncomplicated; Z79.899 Other long term (current) drug therapy
CPT/HCPCS: 36415; 80053; 80305; 82009; 82550; 82553; 83605; 83690; 83735; 85025; 87081; 93005; 96361; 96365; 96366; 96372; 96375; 96376; 99284; G0378; G0480; G0482; J1200; J1630; J2060; J2270; J2405; J2765; J3411; J3475; J3490

== ENCOUNTER 2023-02-17 15:17 | Emergency (ER) | payer OTHER ==
[~2023-02-17] VITALS: Ht 165.1 cm; Wt 86.2 kg
[2023-02-17 15:37] VITALS: BP 111/71; PULSE 95; RESP 20; TEMP 97.7; O2SAT 99
[2023-02-17 15:43] VITALS: TEMP 97.7
[2023-02-17] MEDS ORDERED: MORPHINE SULFATE 10 MG/ML VIAL IVP ONE (15:45)
[2023-02-17 16:22] LABS: BASOPHILS % (AUTO) 0.2 % (0.0-2.0); EOSINOPHILS # (AUTO) 0.1 K/uL (0-0.4); EOSINOPHILS % (AUTO) 1.2 % (0.0-4.0); HEMATOCRIT 42.8 % (36-52); HEMOGLOBIN 14.6 g/dL (12.0-18.0); LYMPHOCYTES # (AUTO) 0.4 K/uL (2.0-11.5); LYMPHOCYTES % (AUTO) 5.9 % (20.5-51.1); MEAN CORPUSCULAR HEMOGLOBIN 32 pg (27-31); MEAN CORPUSCULAR HGB CONC 34 g/dL (33-37); MEAN CORPUSCULAR VOLUME 93.6 fL (80-94); MONOCYTES # (AUTO) 0.4 K/uL (0.8-1.0); MONOCYTES % (AUTO) 5.8 % (1.7-9.3); NEUTROPHILS % (AUTO) 86.9 % (42.2-75.2); PLATELET COUNT (AUTO) 178 K/uL (140-450); RED BLOOD CELL COUNT(AUTO) 4.57 MIL/uL (4.20-6.10); RED CELL DISTRIBUTION WIDTH 14.1 % (11.6-13.7)
[2023-02-17 16:30] LABS: ANION GAP 12.8 (8-16); CALCIUM 8.4 mg/dL (8.5-10.1); CARBON DIOXIDE 26.5 mmol/L (21-32); INR 0.9 (0.8-1.2); POTASSIUM 4.3 mmol/L (3.5-5.1); PROTHROMBIN TIME 9.4 secs (10.8-13.4)
[2023-02-17 16:34] LABS: ALBUMIN 3.9 g/dL (3.4-5.0); BILIRUBIN,DIRECT 0.1 mg/dL (0.0-0.3); TOTAL BILIRUBIN 0.5 mg/dL (0.0-1.0)
[2023-02-17] MEDS ORDERED: KETOROLAC 30 MG/ML VIAL IVP ONE (17:05)
[2023-02-17] MEDS ORDERED: ACET-8905 PO (17:06)
[2023-02-17] MEDS ORDERED: IBUP-2213 PO (17:06)
[2023-02-17 17:15] VITALS: BP 137/88; PULSE 81; RESP 15; O2SAT 100
== END 2023-02-17 17:22 | disposition home or self-care (01) ==
LOC: MED 15:17
DX: S20.212A Contusion of left front wall of thorax, initial encounter (principal); R74.01 Elevation of levels of liver transaminase levels; W18.30XA Fall on same level, unspecified, initial encounter; Y93.89 Activity, other specified; Y92.89 Other specified places as the place of occurrence of the external cause; Y99.8 Other external cause status
CPT/HCPCS: 36415; 70450; 71250; 74176; 80048; 80076; 85025; 85610; 96374; 96375; 99285; J1885; J2270

== ENCOUNTER 2023-03-05 20:27 | Emergency (ER) | payer OTHER, MEDICAID ==
[~2023-03-05] VITALS: Ht 165.1 cm; Wt 86.2 kg
[~2023-03-05 20:27] MED LIST changes: +ACET-8905 PO; -ATA25 PO; -DIPH25TA53 PO; -FAMO-90 PO; -ONDA-188 SL; -PRED20TA5 PO
[2023-03-05 20:31] VITALS: BP 129/96; PULSE 86; RESP 15; TEMP 98; O2SAT 97
[2023-03-05] MEDS ORDERED: diazePAM 5 MG TAB PO ONE (21:55)
[2023-03-05] MEDS ORDERED: ONDANSETRON 4 MG/2 ML VIAL IVP ONE (21:55)
[2023-03-05] MEDS ORDERED: KETOROLAC 30 MG/ML VIAL IVP ONE (21:55)
[2023-03-05] MEDS ORDERED: NACL 0.9% 1,000 ML IV ONE (22:10)
[2023-03-05 22:15] LABS: BASOPHILS # (AUTO) 0.1 K/uL (0.00-0.22); BASOPHILS % (AUTO) 1.1 % (0.0-2.0); EOSINOPHILS # (AUTO) 0.3 K/uL (0-0.4); HEMATOCRIT 41.8 % (36-52); HEMOGLOBIN 13.9 g/dL (12.0-18.0); LYMPHOCYTES # (AUTO) 1.9 K/uL (2.0-11.5); LYMPHOCYTES % (AUTO) 22.3 % (20.5-51.1); MEAN CORPUSCULAR HEMOGLOBIN 32 pg (27-31); MEAN CORPUSCULAR HGB CONC 33 g/dL (33-37); MEAN CORPUSCULAR VOLUME 94.4 fL (80-94); MONOCYTES # (AUTO) 1.1 K/uL (0.8-1.0); MONOCYTES % (AUTO) 12.3 % (1.7-9.3); NEUTROPHILS # (AUTO) 5.3 K/uL (1.8-7.7); NEUTROPHILS % (AUTO) 61.3 % (42.2-75.2); PLATELET COUNT (AUTO) 298 K/uL (140-450); RED BLOOD CELL COUNT(AUTO) 4.42 MIL/uL (4.20-6.10); WHITE BLOOD COUNT (AUTO) 8.6 K/uL (4.8-10.8)
[2023-03-05] MEDS ORDERED: MORPHINE SULFATE 4 MG/ML SYR IVP ONE (22:30)
[2023-03-05 22:43] LABS: ALBUMIN 3.8 g/dL (3.4-5.0); ANION GAP 13.2 (8-16); CALCIUM 8.6 mg/dL (8.5-10.1); CARBON DIOXIDE 27.1 mmol/L (21-32); CREATININE 1.2 mg/dL (0.6-1.3); POTASSIUM 4.3 mmol/L (3.5-5.1); TOTAL BILIRUBIN 0.2 mg/dL (0.0-1.0)
[2023-03-05 23:54] VITALS: BP 129/96; PULSE 86; RESP 15; TEMP 98; O2SAT 97
[2023-03-05 23:54] LABS: APPEARANCE,URINE CLEAR (CLEAR); BILIRUBIN,URINE NEGATIVE (NEGATIVE); BLOOD, URINE NEGATIVE (NEGATIVE); COLOR,URINE YELLOW (YELLOW); LEUKOCYTE ESTERASE ,URINE NEGATIVE (NEGATIVE); NITRITE, URINE NEGATIVE (NEGATIVE); PH,URINE 6.5 (5.0-9.0); PROTEIN,URINE NEGATIVE (NEGATIVE); UGLUCOSE NEGATIVE (NEGATIVE); UROBILINOGEN,URINE 0.2 EU/dL (0.2 - 1)
== END 2023-03-05 23:54 | disposition home or self-care (01) ==
LOC: MED 20:27
DX: S90.121A Contusion of right lesser toe(s) without damage to nail, initial encounter (principal); M54.50 Low back pain, unspecified; F10.10 Alcohol abuse, uncomplicated; F41.9 Anxiety disorder, unspecified; I10 Essential (primary) hypertension; Z86.73 Personal history of transient ischemic attack (TIA), and cerebral infarction without residual deficits; Z98.890 Other specified postprocedural states; Z79.899 Other long term (current) drug therapy; Z79.1 Long term (current) use of non-steroidal anti-inflammatories (NSAID); Y90.9 Presence of alcohol in blood, level not specified; X58.XXXA Exposure to other specified factors, initial encounter; Y92.89 Other specified places as the place of occurrence of the external cause; Y93.89 Activity, other specified; Y99.8 Other external cause status
CPT/HCPCS: 36415; 73660; 80053; 81003; 83690; 84484; 85025; 93005; 96361; 96374; 96375; 99285; J1885; J2270; J2405; J7030

== ENCOUNTER 2023-03-24 00:02 | Emergency (ER) | payer MEDICAID, OTHER ==
[~2023-03-24] VITALS: Ht 165.1 cm; Wt 86.2 kg
[2023-03-24 00:32] VITALS: BP 123/79; PULSE 89; RESP 20; TEMP 96.7; O2SAT 99
[2023-03-24] MEDS ORDERED: KETOROLAC 60 MG/2 ML VIAL IM ONE (01:50)
[2023-03-24] MEDS ORDERED: KETOROLAC 30 MG/ML VIAL ONE (02:13)
[2023-03-24] MEDS ORDERED: IBUP-2213 PO (03:11)
[2023-03-24 03:28] VITALS: BP 124/68; PULSE 80; RESP 16; TEMP 96.7; O2SAT 99
== END 2023-03-24 03:26 | disposition home or self-care (01) ==
LOC: MED 00:02
DX: S83.8X2A Sprain of other specified parts of left knee, initial encounter (principal); I10 Essential (primary) hypertension; Z86.73 Personal history of transient ischemic attack (TIA), and cerebral infarction without residual deficits; Z79.899 Other long term (current) drug therapy; X58.XXXA Exposure to other specified factors, initial encounter; Y93.89 Activity, other specified; Y92.89 Other specified places as the place of occurrence of the external cause; Y99.8 Other external cause status
CPT/HCPCS: 73562; 96372; 99283; J1885

== ENCOUNTER 2023-04-27 23:37 | Emergency (ER) | payer OTHER ==
[~2023-04-27] VITALS: Ht 165.1 cm; Wt 83.9 kg
[2023-04-27 23:50] VITALS: BP 155/89; PULSE 100; RESP 18; TEMP 97.8; O2SAT 95
[2023-04-28] MEDS ORDERED: METOCLOPRAMIDE 10 MG/2 ML INJ VIAL IVP ONE (00:05)
[2023-04-28] MEDS ORDERED: KETOROLAC 30 MG/ML VIAL IVP ONE ×2 (00:05→06:35)
[2023-04-28] MEDS ORDERED: NACL 0.9% 1,000 ML IV ONE (00:05)
[2023-04-28 00:54] LABS: BASOPHILS # (AUTO) 0.1 K/uL (0.00-0.22); BASOPHILS % (AUTO) 1.1 % (0.0-2.0); EOSINOPHILS % (AUTO) 0.1 % (0.0-4.0); LYMPHOCYTES # (AUTO) 0.6 K/uL (2.0-11.5); LYMPHOCYTES % (AUTO) 10.5 % (20.5-51.1); MEAN CORPUSCULAR HEMOGLOBIN 31 pg (27-31); MEAN CORPUSCULAR HGB CONC 34 g/dL (33-37); MEAN CORPUSCULAR VOLUME 91.6 fL (80-94); MONOCYTES # (AUTO) 0.9 K/uL (0.8-1.0); NEUTROPHILS # (AUTO) 4.2 K/uL (1.8-7.7); NEUTROPHILS % (AUTO) 72.2 % (42.2-75.2); PLATELET COUNT (AUTO) 205 K/uL (140-450); RED CELL DISTRIBUTION WIDTH 13.3 % (11.6-13.7); WHITE BLOOD COUNT (AUTO) 5.8 K/uL (4.8-10.8)
[2023-04-28 01:06] LABS: ALANINE AMINOTRANSFERASE 32 U/L (12-78); ALBUMIN 3.6 g/dL (3.4-5.0); ALCOHOL, BLOOD < 3 mg/dL (<10); ALKALINE PHOSPHATASE 93 U/L (50-136); ANION GAP 17.5 (8-16); ASPARTATE AMINOTRANSFERASE 43 U/L (15-37); CALCIUM 8.7 mg/dL (8.5-10.1); CARBON DIOXIDE 22.5 mmol/L (21-32); CHLORIDE 102 mmol/L (98-107); GFR ARICAN-AMERICAN 99 mL/min (>90); GFR NON ARICAN-AMERICAN 82 mL/min (>90); GLUCOSE 115 mg/dL (74-106); LIPASE 20 U/L (16-77); SODIUM SERUM 138 mmol/L (136-145); TOTAL BILIRUBIN 0.3 mg/dL (0.0-1.0); UREA NITROGEN, BLOOD 17 mg/dL (7-18)
[2023-04-28 01:28] LABS: MONOCYTES % (AUTO) 16.1 % (1.7-9.3)
[2023-04-28 01:46] VITALS: O2SAT 97
[2023-04-28] MEDS ORDERED: diphenhydrAMINE 50 MG/ML VIAL IVP ONE (02:10)
[2023-04-28 03:42] VITALS: O2SAT 98
[2023-04-28 05:37] VITALS: O2SAT 98
[2023-04-28] MEDS ORDERED: DEXAMETHASONE 10 MG/ML VIAL IVP ONE (06:35)
[2023-04-28] MEDS ORDERED: ACETAMINOPHEN EXTRA STRENGTH 500 MG TAB PO ONE (06:35)
[2023-04-28] MEDS ORDERED: ASPI-1198 PO (08:01)
[2023-04-28] MEDS ORDERED: ACET-10509 PO (08:01)
[2023-04-28] MEDS ORDERED: AMLO2.5T PO (08:07)
[2023-04-28] MEDS ORDERED: IBUP-2213 PO (08:08)
[2023-04-28 08:35] VITALS: BP 144/93; PULSE 78; RESP 16; TEMP 98; O2SAT 99
== END 2023-04-28 08:35 | disposition home or self-care (01) ==
LOC: MED 23:37
DX: R51.9 Headache, unspecified (principal); G47.00 Insomnia, unspecified; I10 Essential (primary) hypertension; Z86.73 Personal history of transient ischemic attack (TIA), and cerebral infarction without residual deficits; Z79.899 Other long term (current) drug therapy
CPT/HCPCS: 36415; 70450; 70496; 80053; 83690; 85025; 96361; 96374; 96375; 96376; 99285; G0482; J1100; J1200; J1885; J2765; J7030; Q9967

== ENCOUNTER 2023-06-27 18:11 | Emergency (ER) | payer OTHER ==
[~2023-06-27] VITALS: Ht 162.6 cm; Wt 87.1 kg
[~2023-06-27 18:11] MED LIST changes: +ACET-10509 PO; +AMLO2.5T PO
[2023-06-27 18:31] VITALS: BP 107/73; PULSE 103; RESP 19; TEMP 97.3; O2SAT 94
[2023-06-27] MEDS: KETOROLAC 30 MG/ML VIAL IM ONE (20:03)
[2023-06-27] MEDS: methocarbamoL 500 MG TAB PO STA (20:09)
[2023-06-27] MEDS: ACETAMINOPHEN 325 MG TAB PO ONE (20:09)
[2023-06-27] MEDS: LIDOCAINE 5% 1 EA PATCH TP ONE (20:10)
[2023-06-27] MEDS: LORazepam 1 MG TAB PO ONE (20:45)
[2023-06-27] MEDS ORDERED: ACET-8905 PO (21:30)
[2023-06-27] MEDS ORDERED: LID5T TP (21:30)
[2023-06-27] MEDS ORDERED: METH-1681 PO (21:30)
[2023-06-27] MEDS ORDERED: IBUP-2213 PO (21:30)
[2023-06-27 22:30] VITALS: BP 107/73; PULSE 103; RESP 19; TEMP 97.3; O2SAT 94
== END 2023-06-27 22:30 | disposition home or self-care (01) ==
LOC: MED 18:11
DX: S39.012A Strain of muscle, fascia and tendon of lower back, initial encounter (principal); S83.92XA Sprain of unspecified site of left knee, initial encounter; I10 Essential (primary) hypertension; E11.9 Type 2 diabetes mellitus without complications; Z79.899 Other long term (current) drug therapy; Z91.013 Allergy to seafood; X50.0XXA Overexertion from strenuous movement or load, initial encounter; Y92.89 Other specified places as the place of occurrence of the external cause; Y93.89 Activity, other specified; Y99.8 Other external cause status
CPT/HCPCS: 72131; 73562; 96372; 99285; J1885

== ENCOUNTER 2023-09-21 13:34 | Emergency (ER) | payer MEDICAID ==
[~2023-09-21] VITALS: Ht 162.6 cm; Wt 68.0 kg
[~2023-09-21 13:34] MED LIST changes: +LID5T TP; +METH-1681 PO
[2023-09-21 13:41] VITALS: BP 142/90; PULSE 95; RESP 20; TEMP 98; O2SAT 96
[2023-09-21] MEDS: LIDOCAINE MPF 1% 10 MG/ML VIAL INJ ONE (14:02)
[2023-09-21] MEDS: HYDROcodone/APAP 5/325 MG 1 TAB TAB PO ONE (14:05)
[2023-09-21] MEDS ORDERED: ACET-8905 PO (14:47)
[2023-09-21 15:07] VITALS: BP 145/98; PULSE 70; RESP 18; TEMP 98; O2SAT 99
== END 2023-09-21 15:07 | disposition home or self-care (01) ==
LOC: MED 13:34
DX: S61.211A Laceration without foreign body of left index finger without damage to nail, initial encounter (principal); E11.9 Type 2 diabetes mellitus without complications; I10 Essential (primary) hypertension; Z86.69 Personal history of other diseases of the nervous system and sense organs; Z86.73 Personal history of transient ischemic attack (TIA), and cerebral infarction without residual deficits; Z79.1 Long term (current) use of non-steroidal anti-inflammatories (NSAID); Z79.899 Other long term (current) drug therapy; Z91.013 Allergy to seafood; W26.8XXA Contact with other sharp object(s), not elsewhere classified, initial encounter; Y93.89 Activity, other specified; Y92.89 Other specified places as the place of occurrence of the external cause; Y99.8 Other external cause status
CPT/HCPCS: 12002; 99283; J2001

== ENCOUNTER 2023-11-08 20:48 | Emergency (ER) | payer OTHER ==
[~2023-11-08] VITALS: Ht 167.6 cm; Wt 68.0 kg
[2023-11-08 20:50] VITALS: BP 144/86; PULSE 108; RESP 20; TEMP 98; O2SAT 98
[2023-11-08 20:55] VITALS: BP 144/98; PULSE 114; RESP 18; TEMP 97.4
[2023-11-08 21:24] VITALS: BP 144/86; PULSE 108; RESP 20; TEMP 98; O2SAT 92
== END 2023-11-08 21:24 | disposition left against medical advice (07) ==
LOC: MED 20:48
DX: F10.129 Alcohol abuse with intoxication, unspecified (principal); R06.02 Shortness of breath; E11.9 Type 2 diabetes mellitus without complications; I10 Essential (primary) hypertension; Z86.73 Personal history of transient ischemic attack (TIA), and cerebral infarction without residual deficits; Z86.69 Personal history of other diseases of the nervous system and sense organs; Z79.899 Other long term (current) drug therapy; Y90.9 Presence of alcohol in blood, level not specified
CPT/HCPCS: 99283

== ENCOUNTER 2023-12-04 17:06 | Emergency (ER) | payer OTHER ==
[~2023-12-04] VITALS: Ht 160 cm; Wt 87.7 kg
[~2023-12-04 17:06] MED LIST changes: -ACET-10509 PO; +ACET500T99 PO
[2023-12-04 17:15] VITALS: BP 130/88; PULSE 110; RESP 20; TEMP 97.7; O2SAT 98
[2023-12-04 17:30] VITALS: O2SAT 98
[2023-12-04] MEDS: CYCLOBENZAPRINE 10 MG TAB PO ONE (18:10)
[2023-12-04] MEDS: KETOROLAC 30 MG/ML VIAL IM ONE (18:14)
[2023-12-04] MEDS: LIDOCAINE 5% 1 EA PATCH TP ONE (18:14)
[2023-12-04] MEDS: MORPHINE SULFATE 4 MG/ML SYR IM ONE (19:00)
[2023-12-04] MEDS ORDERED: LID5T TP (19:24)
[2023-12-04] MEDS ORDERED: NAPR-337 PO (19:27)
[2023-12-04 19:46] VITALS: BP 130/88; PULSE 110; RESP 20; TEMP 97.7; O2SAT 98
== END 2023-12-04 19:46 | disposition home or self-care (01) ==
LOC: MED 17:06
DX: M54.50 Low back pain, unspecified (principal); E11.9 Type 2 diabetes mellitus without complications; I10 Essential (primary) hypertension; Z86.73 Personal history of transient ischemic attack (TIA), and cerebral infarction without residual deficits; Z86.69 Personal history of other diseases of the nervous system and sense organs; Z79.899 Other long term (current) drug therapy
CPT/HCPCS: 72110; 96372; 99284; J1885; J2270